=== PATIENT | female | born 1985 | race Caucasian/White ===

== ENCOUNTER 2016-09-08 21:05 | Observation (INO) | payer BC ==
[~2016-09-08] VITALS: Ht 165.1 cm; Wt 83.8 kg
[~2016-09-08 21:05] MED LIST: PRENTAB26 PO
[2016-09-08] MEDS ORDERED: ONDANSETRON INJ 2 MG/ML 2 ML VIAL IV STA (22:05)
[2016-09-08] MEDS ORDERED: MoRPHine SULFATE 4 MG/ML 1 ML CARP\\VIAL IV STA ×2 (22:05→23:46)
[2016-09-08] MEDS ORDERED: SODIUM CHLORIDE 0.9% 1000ML 1,000 ML IV STA ×2 (22:05)
--- NOTE | 2016-09-08 22:17 | DIAGNOSTIC IMAGING REPORT ---
CHEST ONE VIEW PORTABLE CLINICAL HISTORY: Atypical chest pain. Vomiting. COMPARISON STUDY: 01/06/2015 FINDINGS: The cardiac and mediastinal contours are normal. There is no evidence of focal pulmonary consolidation. There is no evidence of failure. No pleural effusions are visualized.[ No free air is visualized IMPRESSION: No active disease in the chest. Electronically signed by: Franki Mcmillan M.D. 09/08/2016 10:15 PM Dictated Date/Time: 09/08/2016 10:15 PM
[2016-09-08 23:09] LABS: BASO % 0.3 %; BASO ABS # 0.02 K/uL (0-0.2); COMPLETE YES; EOS % 0.6 %; HEMATOCRIT 42.6 % (37-47); IG% 0.1 %; LYMPH % 33.9 %; LYMPH ABS # 2.67 K/uL (1.2-3.4); MEAN CELL VOLUME 90.6 fL (80-100); MEAN CORPUSCULAR HEMOGLOBIN 30.2 pg (25-34); MEAN CORPUSCULAR HGB CONC 33.3 g/dl (32-36); MONO % 5.2 %; NEUT % 59.9 %; PLATELET COUNT 222 K/uL (130-400); WHITE BLOOD COUNT 7.88 K/uL (4.8-10.8)
[2016-09-08 23:26] LABS: PREG INTERNAL NEGATIVE QC NEG CLEAR BACKGROUND; PREG INTERNAL POSITIVE QC POS CONTROL LINE
[2016-09-08 23:27] LABS: ALT/SGPT 52 U/L (12-78); BLOOD UREA NITROGEN 15 mg/dl (7-18); BUN/CREATININE RATIO 14.9 (10-20); CALCIUM 9.1 mg/dl (8.5-10.1); CARBON DIOXIDE 24 mmol/L (21-32); CHLORIDE 104 mmol/L (98-107); GLUCOSE 73 mg/dl (70-99); POTASSIUM 3.8 mmol/L (3.5-5.1); SODIUM 139 mmol/L (136-145)
[2016-09-08 23:32] LABS: ALKALINE PHOSPHATASE 93 U/L (45-117); AST/SGOT 34 U/L (15-37)
[2016-09-08] MEDS ORDERED: HYDROmorphone INJ 1 MG/ML SYR IV STA (23:46)
[2016-09-09] VITALS (9 sets, daily range): BP systolic 98–119; BP diastolic 65–84; PULSE 59–91; TEMP 36.7–36.9; O2SAT 97–100; Ht 165.1 cm; Wt 83.8 kg
[2016-09-09 00:33] LABS: URINE APPEARANCE CLEAR (CLEAR); URINE BILIRUBIN NEG (NEG); URINE COLOR YELLOW; URINE NITRITE NEG (NEG); URINE SPECIFIC GRAVITY 1.022 (1.000-1.030); UROBILINOGEN NEG (NEG); ZZUR CULT IF INDIC CLEAN CATCH NO
[2016-09-09 00:34] LABS: MANUAL MICROSCOPIC REQUIRED? NO; REVIEW REQ? NO
[2016-09-09] MEDS ORDERED: OXYCODONE/ACETAMINOPHEN 5-325 TAB PO PRN (01:30)
[2016-09-09] MEDS ORDERED: HYDROmorphone INJ 1 MG/ML SYR IV PRN (01:30)
[2016-09-09] MEDS ORDERED: ONDANSETRON INJ 2 MG/ML 2 ML VIAL IV PRN ×2 (01:30→07:45)
--- NOTE | 2016-09-09 01:33 | History & Physical Bridge Note ---
H&P Re-Evaluation Bridge Note: I have examined the patient, reviewed the History & Physical and in the interval since the performance of the History & Physical I have noted the following changes of clinical significance: No changes notedh and p dictated 1; 30 am ext [id number] stat line 100 confirmation number [id number]. dx acute cholecystitis plan lap mike c.gram
[2016-09-09] MEDS ORDERED: IV FLUIDS COMPLETED PRN (02:00)
--- NOTE | 2016-09-09 02:28 | HISTORY & PHYSICAL EXAMINATION ---
DATE OF ADMISSION: 09/09/2016 Seen in the Emergency Room on 09/09/2016 at 1:15 in the morning. SUMMARY: This is a 31-year-old female, who came into the Emergency Room last evening at approximately 9:15 where vitals showed a temperature of 36.9, pulse 75, respirations 18, blood pressure 127/83 and O2 sats 100% on room air. After she has had at least 24-hour history of abdominal pain, progressively it got worse. When she came into the Emergency Room, she was evaluated, had an ultrasound and a chest x-ray which confirmed what it had shown before that she has cholelithiasis. No real wall thickening. I was called at approximately 12:15 this morning by the physician medical office receptionist assistant where she has had the patient, she could not keep her comfortable. She has had 3 doses of analgesics, 2 of morphine and 1 mg of Dilaudid probably an hour before she had called me, it was my recollection. Apparently, the patient had not been seen by the PA since that time, so I asked her to see the patient again to see if the Dilaudid was sufficient. The physician medical office receptionist assistant called me back later and stated that the patient was comfortable except when you pushed in her right upper quadrant. Other past medical history is positive. She had a delivery back in June, but in last April she had an ultrasound that showed cholelithiasis. The plan according to the patient was to see her buzzle buffer 6 weeks and at that time a referral would be made for surgery. That has passed as far as waiting for 6 weeks yet. Apparently, she had a few office cancellation according to the patient. She previously denied any factors that attributed to a gallbladder problem except that two days ago, when those symptoms started. She states that she ate some subs at [employer] in [place] and with extra spices on it that may have triggered the etiology. PAST MEDICAL HISTORY: Other than the deliveries have been unremarkable. She is a healthy appearing, 31-year-old female, with no really systemic disease. ALLERGIES: No known allergies. MEDICATIONS: She really does not take any medicines. SURGERIES: She has had no previous surgery. PHYSICAL EXAMINATION: VITAL SIGNS: As I see her this morning as stated above at 1:15. Her last vitals were obtained about an hour prior to that where her pulse rate was 98, respirations 18, blood pressure 109/69 and O2 sats 98 on room air. GENERAL: She is lying in bed. Her mother is at bedside. She is resting comfortably, but she said the pain keeps coming back off and on. HEAD: Normocephalic. EYES: PERRLA. The sclerae is nonicteric. NECK: There is no cervical lymphadenopathy. Oropharyngeal area; she has a jewelry on her tongue that I asked that should be removed prior to surgery. LUNGS: Clear to auscultation. HEART: Normal sinus rhythm. ABDOMEN: Completely benign. I cannot elicit any tenderness except possibly some pressure in the right upper quadrant. We have guarding with deep palpation. EXTREMITIES: Grossly normal. LABORATORY DATA: Showed white count at 7.88. There is no left shift. Her hemoglobin is 14.2. The chemistries are; liver function tests were all normal including a negative test. PLAN: At this point, we will admit the patient since it is 1:30 in the morning. I will check with the OR and hopefully we can get it done first thing in the morning. Risks and complications of surgery which for her is laparoscopic cholecystectomy, cholangiogram possible open; were explained to the patient and she would like to proceed accordingly. ELROY
[2016-09-09] MEDS: LACTATED RINGER'S 1000ML 1,000 ML IV SCH ×2 (03:21→10:33)
[2016-09-09] MEDS: CEFOXITIN IV 2,000 MG in DEXTROSE 5% 50ML 50 ML IV SCH ×2 (04:10→10:31)
--- NOTE | 2016-09-09 06:14 | EMERGENCY ROOM VISIT NOTE ---
History First contact with patient: 22:03 Chief Complaint: ABDOMINAL PAIN Stated Complaint: CHOLECYSTITIS Nursing Triage Summary: Patient states "I just had a baby two months ago. I was full of gallstones while . When I have a flare up of pain, the pain radiates across my chest. I feel short of breath but it is because of the pain. I have been vomiting with the pain since about 1700. I have a lot of pain in the center of my chest that is burning in nature." History of Present Illness The patient is a 31 year old female who presents to the Emergency Room with complaints of nausea, epigastric right upper quadrant pain since last night. She describes the pain as severe, 9 out of 10. Nothing makes it better or worse. It started after eating a fatty sandwich last night. Patient states she is best to her gallbladder out with Dr. Mitchell but never had this scheduled. Patient denies fever, chills, cough, congestion, urinary symptoms, dysuria. Review of Systems See HPI for pertinent positives & negatives. A total of 10 systems reviewed and were otherwise negative. Past Medical/Surgical History Medical Problems: (1) 39 weeks (2) Cholecystitis (3) labor Social History Smoking Status: Unknown if Ever Smoked Drug Use: none Housing Status: lives with family Current/Historical Medications No Active Prescriptions or Reported Meds Allergies Coded Allergies: No Known Allergies (Unverified , 09/08/16) Physical Exam Vital Signs Date Time Temp Pulse Resp B/P Pulse Ox O2 Delivery O2 Flow Rate FiO2 09/09/16 00:46 98 18 109/69 98 Room Air 09/08/16 23:12 65 18 118/75 99 Room Air 09/08/16 23:12 99 Room Air 09/08/16 21:15 36.9 75 18 127/83 100 Room Air Pain Rating (0-10): 7.0 Physical Exam VITALS: Vitals are noted on the nurse's note and reviewed by myself. Vital signs stable. GENERAL: Pleasant female in obvious pain, in no acute distress, nondiaphoretic, well-developed well-nourished. SKIN: The skin was without rashes, erythema, edema, or bruising. There is no tenting of the skin. Capillary reflex less than 2 seconds. HEAD: Normocephalic atraumatic. EARS: External auditory canals clear, tympanic membranes pearly zacarias without erythema or effusion bilaterally. EYES: Pupils equal round and reactive to light and accommodation. Conjunctivae without injection, sclerae without icterus. Extraocular movements intact. NOSE: Patent, turbinates without inflammation or discharge. MOUTH: Mucous membranes moist. Pharynx without erythema or exudate. Uvula midline. Airway patent. Tongue does not deviate. NECK: Supple without nuchal rigidity. No lymphadenopathy. No thyromegaly. Cervical spine is nontender. No JVD. HEART: Regular rate and rhythm without murmurs gallops or rubs. LUNGS: Clear to auscultation bilaterally without wheezes, rales or rhonchi. No dullness to percussion. No retractions or accessory muscle use. ABDOMEN: Positive bowel sounds x 4. Normal tympanic percussion. Soft, tender to palpation right upper quadrant, no CVA tenderness, without masses or organomegaly. No guarding or rebound tenderness. MUSCULOSKELETAL: No muscle atrophy, erythema, or edema noted. NEURO: Patient was alert and oriented to person place and time. Normal sensation to light and sharp touch. No focal neurological deficits. Medical Decision & Procedures Laboratory Results 09/08/16 22:25 Red Blood Count 4.70, Mean Corpuscular Volume 90.6, Mean Corpuscular Hemoglobin 30.2, Mean Corpuscular Hemoglobin Concent 33.3, Mean Platelet Volume 11.0, Neutrophils (%) (Auto) 59.9, Lymphocytes (%) (Auto) 33.9, Monocytes (%) (Auto) 5.2, Eosinophils (%) (Auto) 0.6, Basophils (%) (Auto) 0.3, Neutrophils # (Auto) 4.72, Lymphocytes # (Auto) 2.67, Monocytes # (Auto) 0.41, Eosinophils # (Auto) 0.05, Basophils # (Auto) 0.02 09/08/16 22:25 Test 09/08/16 22:25 09/08/16 22:30 White Blood Count 7.88 K/uL (4.8-10.8) Red Blood Count 4.70 M/uL (4.2-5.4) Hemoglobin 14.2 g/dL (12.0-16.0) Hematocrit 42.6 % (37-47) Mean Corpuscular Volume 90.6 fL (80-100) Mean Corpuscular Hemoglobin 30.2 pg (25-34) Mean Corpuscular Hemoglobin Concent 33.3 g/dl (32-36) Platelet Count 222 K/uL (130-400) Mean Platelet Volume 11.0 fL (7.4-10.4) Neutrophils (%) (Auto) 59.9 % Lymphocytes (%) (Auto) 33.9 % Monocytes (%) (Auto) 5.2 % Eosinophils (%) (Auto) 0.6 % Basophils (%) (Auto) 0.3 % Neutrophils # (Auto) 4.72 K/uL (1.4-6.5) Lymphocytes # (Auto) 2.67 K/uL (1.2-3.4) Monocytes # (Auto) 0.41 K/uL (0.11-0.59) Eosinophils # (Auto) 0.05 K/uL (0-0.5) Basophils # (Auto) 0.02 K/uL (0-0.2) RDW Standard Deviation 42.7 fL (36.4-46.3) RDW Coefficient of Variation 12.8 % (11.5-14.5) Immature Granulocyte % (Auto) 0.1 % Immature Granulocyte # (Auto) 0.01 K/uL (0.00-0.02) Anion Gap 11.0 mmol/L (3-11) Est Creatinine Clear Calc Drug Dose 87.9 ml/min Estimated GFR () 87.6 Estimated GFR (Non- 75.5 BUN/Creatinine Ratio 14.9 (10-20) Calcium Level 9.1 mg/dl (8.5-10.1) Total Bilirubin 0.4 mg/dl (0.2-1) Direct Bilirubin 0.1 mg/dl (0-0.2) Aspartate Amino Transf (AST/SGOT) 34 U/L (15-37) Alanine Aminotransferase (ALT/SGPT) 52 U/L (12-78) Alkaline Phosphatase 93 U/L (45-117) Troponin I < 0.015 ng/ml (0-0.045) Total Protein 7.8 gm/dl (6.4-8.2) Albumin 3.8 gm/dl (3.4-5.0) Lipase 220 U/L (73-393) Human Chorionic Gonadotropin, Qual NEG (NEG) Urine Color YELLOW Urine Appearance CLEAR (CLEAR) Urine pH 5.0 (4.5-7.5) Urine Specific [place] 1.022 (1.000-1.030) Urine Protein NEG (NEG) Urine Glucose (UA) NEG (NEG) Urine Ketones NEG (NEG) Urine Occult Blood NEG (NEG) Urine Nitrite NEG (NEG) Urine Bilirubin NEG (NEG) Urine Urobilinogen NEG (NEG) Urine Leukocyte Esterase NEG (NEG) Medications Administered Medications (Trade) Dose Ordered Sig/Nishant Route Start Time Stop Time Status Last Admin Dose Admin Morphine Sulfate (MoRPHine SULFATE INJ) 4 mg NOW STAT IV 09/08/16 22:05 09/08/16 22:06 DC 09/08/16 22:05 4 MG Ondansetron HCl 4 mg 4 mg NOW STAT IV 09/08/16 22:05 09/08/16 22:06 DC 09/08/16 22:05 4 MG Sodium Chloride 1,000 ml @ 999 mls/hr Q1H1M STAT IV 09/08/16 22:05 09/08/16 23:05 DC 09/08/16 23:01 999 MLS/HR Sodium Chloride (Nss 1000ml) 1,000 ml @ 125 mls/hr Q8H STAT IV 09/08/16 22:05 09/09/16 03:07 DC 09/08/16 23:01 125 MLS/HR Morphine Sulfate (MoRPHine SULFATE INJ) 4 mg NOW STAT IV 09/08/16 23:46 09/08/16 23:47 DC 09/08/16 23:46 4 MG ED Course Prior records/ancillary studies reviewed. Triage Nursing notes reviewed. Additional history obtained from family The patient's history was concerning for abdominal pain. Differential diagnosis: Etiologies such as appendicitis, diverticulitis, PUD, biliary pathology, UTI, pancreatitis, obstruction, mesenteric ischemia, aortic pathology, infections, inflammatory bowel disease, renal colic, as well as others were entertained. Physical examination findings: As above. ER treatment provided: Zofran, morphine, Dilaudid, IV fluids On reassessment the patient felt better. Diagnostics interpreted by me: ECG: Normal sinus, normal intervals, no acute ST-T wave changes. Impression normal sinus rhythm interpreted by myself The labs revealed no worrisome leukocytosis or electrolyte abnormality negative hCG Imaging studies: Ultrasound shows cholelithiasis with a stone in the neck. Positive Clark sign. Consultation: A consultation was placed with the surgeon, Dr. Munoz the case was discussed and diagnostics were reviewed. The patient was evaluated in the ER for further treatment. Exam and history seem consistent with biliary colic concerning for acute cholecystitis. Patient will be evaluated by surgery for possible admission. Patient had severe amount of pain. She is given multiple rounds of pain meds. No white count. No elevation in LFTs.By the evaluation outlined above emergent etiologies such as appendicitis, diverticulitis, PUD, UTI, pancreatitis, obstruction, mesenteric ischemia, aortic pathology, infections, inflammatory bowel disease, renal colic, as well as others were deemed relatively unlikely. The pt informed about the findings as listed above. All questions were answered and pleased with the treatment. Case reviewed with my attending Medical Decision As above Impression Primary Impression: Biliary colic Departure Information Dispostion Still a Patient Condition GOOD Prescriptions No Active Prescriptions or Reported Meds Referrals Rex Trent M.D. (PCP) Forms Call Back Authorization, HOME CARE DOCUMENTATION FORM, IMPORTANT VISIT INFORMATION Patient Instructions My [facility]
[2016-09-09] MEDS ORDERED: DEXAMETHASONE SOD INJ 4 MG/ML VIAL ONE (06:40)
[2016-09-09] MEDS ORDERED: LIDOCAINE HCL 2% 2 ML VIAL (20MG/ML) ONE (06:40)
[2016-09-09] MEDS ORDERED: FENTANYL CITRATE INJ 50 MCG/1 ML 2 ML VIAL ONE ×3 (06:40→08:02)
[2016-09-09] MEDS ORDERED: SUCCINYLCHOLINE CHLORIDE 20 MG/ML 10 ML VIAL IV ONE (06:40)
[2016-09-09] MEDS ORDERED: ONDANSETRON INJ 2 MG/ML 2 ML VIAL ONE (06:40)
[2016-09-09] MEDS ORDERED: GLYCOPYRROLATE INJ 0.2 MG/ML VIAL ONE (06:40)
[2016-09-09] MEDS ORDERED: PROPOFOL IV EMULSION 10 MG/ML 20 ML VIAL IV ONE (06:40)
[2016-09-09] MEDS ORDERED: ROCURONIUM BROMIDE 10 MG/ML 5 ML VIAL ONE (06:40)
[2016-09-09] MEDS ORDERED: PHENYLEPHRINE HCL INJ 10 MG/ML VIAL ONE (06:40)
[2016-09-09] MEDS ORDERED: NEOSTIGMINE METHYLSULFATE 5 MG/5 ML SYR ONE (06:40)
[2016-09-09] MEDS ORDERED: MIDAZOLAM HCL 1 MG/ML 2ML VIAL ONE (06:40)
[2016-09-09] MEDS ORDERED: EpHEDrine SULFATE INJ 50 MG/ML AMP ONE (06:40)
[2016-09-09] MEDS ORDERED: ACETAMINOPHEN 1000 MG/100 ML IV IV ONE (06:48)
--- NOTE | 2016-09-09 07:09 | DIAGNOSTIC IMAGING REPORT ---
ABDOMINAL ULTRASOUND, RIGHT UPPER QUADRANT HISTORY: Right upper quadrant abdominal pain.. COMPARISON: Abdominal ultrasound 05/05/2016. FINDINGS: Pancreas: The pancreas demonstrates a normal echotexture. Liver: Unremarkable. Gallbladder: Multiple small gallstones. There appears to be a gallstone at the neck of the gallbladder. No gallbladder wall thickening or pericholecystic fluid. The technologist reported a positive sonographic Clark sign. CBD: 6 mm. Right kidney: No hydronephrosis. IMPRESSION: Cholelithiasis with a small stone at the neck of the gallbladder. However, no gallbladder wall thickening at this time. The technologist reported a positive sonographic Clark's sign. Clinical correlation recommended to assess for acute cholecystitis. Consider nuclear medicine hepatobiliary scan. Electronically signed by: Igor Weaver M.D. 09/09/2016 7:08 AM Dictated Date/Time: 09/09/2016 7:06 AM
[2016-09-09] MEDS ORDERED: LIDOCAINE/EPINEPHRINE 1% 20 ML VIAL ONE (07:11)
[2016-09-09] MEDS ORDERED: ATROPINE SULFATE 0.1 MG/ML 5ML SYR IV PRN (07:45)
[2016-09-09] MEDS ORDERED: HYDROmorphone INJ 2 MG/ML SYR/VIAL IV PRN (07:45)
[2016-09-09] MEDS ORDERED: PROMETHAZINE HCL INJ 12.5 MG in SODIUM CHLORIDE 0.9% 50ML 50 ML IV PRN (07:45)
[2016-09-09] MEDS ORDERED: KETOROLAC TROMETHAMINE 30 MG/ML VIAL IV. PRN (07:45)
[2016-09-09] MEDS ORDERED: CONRAY 60% 50 ML VIAL INSTIL ONE (08:14)
--- NOTE | 2016-09-09 08:38 | [facility] Post Operative Brief Note ---
Immediate Operative Summary Operative Date Sep 09, 2016. Pre-Operative Diagnosis Acute cholecystitis and cholelithiasis Post-Operative Diagnosis Same as preoperative diagnosis Procedure(s) Performed Laparoscopic cholecystectomy with intraoperative cholangiogram Surgeon Dr. Munoz Advertising Space Clerk Surgeon(s) None Estimated Blood Loss 10 ml Findings hydrops gallbladder Specimens A. Gallbladder
[2016-09-09] MEDS ORDERED: OXYC-57 PO (08:41)
--- NOTE | 2016-09-09 08:44 | Discharge Instructions ---
Discharge Instructions Visit Reason for Visit: Cholecystitis Discharge Discharge Diagnosis / Problem: s/p lap mike,c,gram Discharge Goals Goal(s): Decrease discomfort Activity Recommendations Lifting Limitations: no more than 10 pounds (for one week) Exercise/Sports Limitations: as tolerated May Resume Sexual Activity: when tolerated Shower/Bathe: tomorrow Driving or Machine Use: resume 3 days after discharge (do not take prescription meds when driving) Anesthesia . Post Anesthesia Instructions: If you have had General Anesthesia or IV Sedation: * Do not drive today. * Resume driving when surgeon permits. * Do not make important decisions or sign legal documents today. * Call surgeon for: 1. Temperature elevations greater than 101 degrees F. 2. Uncontrollable pain. 3. Excessive bleeding. 4. Persistent nausea and vomiting. 5. Medication intolerance (nausea, vomiting or rash). * For nausea and vomiting use only clear liquids such as: tea, soda, bouillon until nausea subsides, then gradually increase diet as tolerated. * If you have any concerns or questions, call your surgeon's office. If physician is unavailable and it is an emergency, call 911 or go to the nearest emergency room. . Instructions / Follow-Up Instructions / Follow-Up call [phone] for any problems and follow up with Dr Munoz in office in 1 week at [address] [place] [address] Dr AMARAL general surgery Diet Recommendations Recommended Home Diet: resume previous diet Procedures Procedures Performed: Laparoscopic cholecystectomy with intraoperative cholangiogram Medical Emergencies . Who to Call and When: Medical Emergencies: If at any time you feel your situation is an emergency, please call 911 immediately. . Non-Emergent Contact . . "Provider Documentation" section prepared by Regis Munoz.
--- NOTE | 2016-09-09 08:49 | DIAGNOSTIC IMAGING REPORT ---
INTRAOPERATIVE CHOLANGIOGRAM HISTORY: Post cholecystectomy. FLUOROSCOPY TIME: 3 seconds. 4 fluoroscopic spot images. FINDINGS: Fluoroscopy was provided for an intraoperative cholangiogram status post cholecystectomy. Contrast was injected through the cystic duct remnant. The common bile duct is normal in course and caliber. There are no filling defects seen within the common bile duct to suggest a retained stone. Contrast extends into the small bowel. There is no intrahepatic bile duct dilatation. IMPRESSION: Fluoroscopy provided for an intraoperative cholangiogram status post cholecystectomy. No filling defects within the common bile duct. Electronically signed by: Igor Weaver M.D. 09/09/2016 8:48 AM Dictated Date/Time: 09/09/2016 8:47 AM
[2016-09-09] MEDS ORDERED: LABETALOL HCL IV 5 MG/ML 20ML ONE (09:02)
--- NOTE | 2016-09-09 09:22 | OPERATIVE REPORT ---
DATE OF OPERATION: 09/09/2016 PREOPERATIVE DIAGNOSIS: Acute and chronic cholecystitis, cholelithiasis. POSTOPERATIVE DIAGNOSIS: Hydrops of the gallbladder. PROCEDURE: Laparoscopic cholecystectomy, intraoperative cholangiogram. SURGEON: Dr. Munoz. OPERATION AND FINDINGS: SUMMARY: After induction of general endotracheal anesthesia the patient's abdomen was prepped with Betadine solution and properly draped. We made a small incision supraumbilically enough to place a Veress needle followed by CO2 followed by 5 mm trocar. Point of entry inspected and no injury identified. Under direct visualization, we placed the patient in reverse Trendelenburg position, rotated to the left. We could see a distended gallbladder, probably hydrops just by the appearance of it. Under direct visualization, we placed a 5 mm epigastric, two 5 mm subcostal ports with preemptive local analgesia 1% Xylocaine. The gallbladder was elevated and we aspirated with the aspirating needle, certainly got clear bile indicating as we had predicted. The wall was very thickened but acutely, therefore it was placed under elevated right lobe of the liver with the upper transfer. We then went to the murali hepatis, which was moderate amount of edema as expected. We just dissected out along the cystic duct and creating the triangle of Calot area and then we got around the cystic duct sufficiently that we clipped it proximally. A small opening in the cystic duct was made. A #4 ureteral catheter transversed the abdominal wall positioned Angiocath in the cystic duct. Serial x-rays were taken that showed free flow into the duodenum. No obstruction. The cholangiocath was then removed. The cystic duct was doubly clipped and divided. An artery which was small was divided after clipping it twice, then we took the gallbladder pretty much just by blunt dissection. A few areas we cauterized as well, as stated was quite edematous and we left it dissected by leaving the posterior peritoneum pretty much intact. A few areas we had some bleeding coming through the liver bed, but we cauterized that. Once the gallbladder was elevated off the liver bed, we suctioned out the subhepatic area appeared satisfactory except for a few minor oozers that we will control with the end. The gallbladder was placed in an Endopouch and taken out intact through the epigastric port. Subhepatic and suprahepatic area was then checked again we spent some time cauterizing a few bleeders in the liver area, which were small. By the time we were done, the seemed adequate and satisfactory. We suctioned out above the right lobe of the liver, placed the camera in the right subcostal port to visualize the umbilical area where we first went in, no adhesions in the anterior abdominal wall was noted. The wounds were closed with 4-0 Monocryl. Steri-Strips applied. The procedure was tolerated well by the patient and was taken to recovery room in good condition. Estimated blood loss approximately 10 mL. I attest to the content of the Intraoperative Record and any orders documented therein. Any exceptio ns are noted below.
--- NOTE | 2016-09-09 09:45 | Anesthesiology Progress Note ---
Anesthesia Post Op Note Date & Time Sep 09, 2016 at 09:45 Vital Signs Pain Intensity: 2 Vital Signs Past 12 Hours Date Time Temp Pulse Resp B/P Pulse Ox O2 Delivery O2 Flow Rate FiO2 09/09/16 09:39 121/84 09/09/16 09:38 56 16 09/09/16 09:38 57 16 100 09/09/16 09:34 109/77 09/09/16 09:33 57 15 100 09/09/16 09:33 56 15 09/09/16 09:29 115/76 09/09/16 09:28 57 18 100 09/09/16 09:28 57 18 09/09/16 09:27 36.6 09/09/16 09:25 53 16 100 09/09/16 09:25 53 16 09/09/16 09:24 118/77 09/09/16 09:20 56 16 09/09/16 09:20 57 16 100 09/09/16 09:19 108/78 09/09/16 09:15 58 13 09/09/16 09:15 59 13 100 09/09/16 09:14 124/89 09/09/16 09:10 56 23 09/09/16 09:10 56 23 100 09/09/16 09:09 123/83 09/09/16 09:05 52 12 100 09/09/16 09:05 52 12 09/09/16 09:04 126/86 09/09/16 09:00 66 17 09/09/16 09:00 65 17 100 09/09/16 08:58 123/88 09/09/16 08:55 36.3 65 16 123/88 100 Nasal Cannula 3 09/09/16 06:32 36.9 87 16 115/77 99 Room Air 09/09/16 02:30 Room Air 09/09/16 02:30 36.7 91 14 116/83 100 Room Air 09/09/16 02:20 95 18 101/73 100 09/09/16 00:46 98 18 109/69 98 Room Air 09/08/16 23:12 65 18 118/75 99 Room Air 09/08/16 23:12 99 Room Air Notes Mental Status: alert / awake / arousable, participated in evaluation Pt Amnestic to Procedure: Yes Nausea / Vomiting: adequately controlled Pain: adequately controlled Airway Patency, RR, SpO2: stable & adequate BP & HR: stable & adequate Hydration State: stable & adequate Anesthetic Complications: no major complications apparent
--- NOTE | 2016-09-14 11:13 | DISCHARGE SUMMARY ---
PRIMARY DISCHARGE DIAGNOSES: Cholelithiasis and acute cholecystitis. PROCEDURE PERFORMED: Laparoscopic cholecystectomy with intraoperative cholangiogram. HOSPITAL COURSE: The patient is a 31-year-old female who presented to the Emergency Department with severe epigastric and right upper quadrant pain. She had a normal white count, but a stone was noted in the neck of the gallbladder. Pain was not managed with oral analgesics in the Emergency Department. She was subsequently admitted to the surgical service overnight. She was taken to the operating room the next morning for laparoscopic cholecystectomy. She did have hydrops. Cholangiogram was negative. The procedure was well tolerated. She was returned to the surgical floor. During the day, she was able to increase activity, tolerating a regular diet. Once she was tolerating oral analgesics, she was stable for discharge later in the afternoon. DISCHARGE INSTRUCTIONS: Discharge home. Follow up with Dr. Munoz in 1 week. DISCHARGE MEDICATIONS: Percocet 1-2 tablets every 4 hours as needed.
== END 2016-09-09 14:44 | disposition home or self-care (01) ==
LOC: ENRESERVDT → ENRESERVTM → C.EDB 21:07 → C.MSW 09-09 01:25
PROVIDERS: ADMIT Surgery; ATTEND Surgery
DX: K80.10 Calculus of gallbladder with chronic cholecystitis without obstruction (principal); K82.1 Hydrops of gallbladder

== ENCOUNTER 2017-05-03 07:51 | Emergency (ER) | payer BC ==
[~2017-05-03] VITALS: Ht 165.1 cm; Wt 89.3 kg
[~2017-05-03 07:51] MED LIST changes: +OXYC-57 PO; -PRENTAB26 PO
[2017-05-03 07:54] VITALS: Ht 165.1 cm; Wt 89.3 kg
[2017-05-03] MEDS ORDERED: SUCRALFATE 1 GM TAB PO STA (08:07)
[2017-05-03] MEDS ORDERED: GI COCKTAIL PO STA (08:07)
[2017-05-03] MEDS ORDERED: DiphenhydrAMINE HCL 50 MG/ML VIAL IV STA (08:07)
[2017-05-03] MEDS ORDERED: PROCHLORPERAZINE 5 MG/ML 2 ML VIAL IV STA (08:07)
[2017-05-03] MEDS ORDERED: SODIUM CHLORIDE 0.9% 1000ML 1,000 ML IV STA (08:07)
[2017-05-03] MEDS ORDERED: FAMOTIDINE 20 MG TAB PO STA (08:07)
[2017-05-03] MEDS ORDERED: KETOROLAC TROMETHAMINE 30 MG/ML VIAL IV STA (08:07)
--- NOTE | 2017-05-03 08:08 | EMERGENCY ROOM VISIT NOTE ---
History Report prepared by Marry: Lindsey Keane Under the Supervision of: Dr. Jc Delgado M.D. First contact with patient: 07:59 Chief Complaint: SORETHROAT Stated Complaint: SORETHROAT SOB History of Present Illness The patient is a 31 year old female who presents to the Emergency Room with complaints of a persistent sore throat for the past four weeks. She currently rates her discomfort as a 10/10 in severity. The patient states that for the past four weeks she has had a sore throat and sinus congestion. She states that she has had difficulty eating and swallowing. The patient states that recently she has been experiencing chills. She states that she has taken ibuprofen which has helped to alleviate her headache. The patient states that she cannot take cold medications because they make her too drowsy and would cause her to sleep. She additionally reports lymphadenopathy. Source of History: patient Position: throat Symptom Intensity: 10/10 Quality: other (sore) Timing: other (persistent) Associated Symptoms: + chills, + headache Note: Assoicated Symptoms: difficulty eating and swallowing, sinus congestion Review of Systems See HPI for pertinent positives & negatives. A total of 10 systems reviewed and were otherwise negative. Past Medical & Surgical Medical Problems: (1) 39 weeks (2) Cholecystitis (3) labor Family History Cancer Diabetes mellitus Hypertension Kidney disease Kidney stones Lung disease Social History Smoking Status: Never Smoker Smokeless Tobacco Use: No Alcohol Use: none Drug Use: none Marital Status: Housing Status: lives with family Occupation Status: employed Current/Historical Medications Scheduled Amoxicillin (Amoxil), 1 TAB PO TID Ondasetron Odt (Zofran Odt), 4 MG SL Q6H Allergies Coded Allergies: No Known Allergies (Unverified , 05/03/17) Physical Exam Vital Signs Date Time Temp Pulse Resp B/P (MAP) Pulse Ox O2 Delivery O2 Flow Rate FiO2 05/03/17 09:55 117 16 05/03/17 09:24 117 18 05/03/17 08:36 123 05/03/17 08:16 98 Room Air 05/03/17 07:54 36.9 132 18 145/84 98 Room Air Physical Exam GENERAL: Patient is a healthy-appearing well-nourished female HEAD: Normocephalic atraumatic EYES: Ocular movements intact pupils equal and react to light OROPHARYNX mucous membranes are moist no exudates present no erythema or edema present NECK: Supple no nuchal rigidity, no evidence of meningitis or encephalitis on exam, able to swallow own saliva. CHEST: Good equal expansion LUNGS: Clear and equal to auscultation CARDIAC: Normal S1 and S2 ABDOMEN: Soft nontender no guarding BACK: No CVA tenderness EXTREMITIES: No pain upon palpation normal muscle strength in all groups no clubbing cyanosis or edema NEURO: Patient is following commands and answering questions appropriately. Alert and oriented x3 Cranial Nerves 2-12 grossly intact Medical Decision & Procedures ER Provider Diagnostic Interpretation: X-ray results as stated below per interpretation by me and the radiologist: SOFT TISSUE NECK HISTORY: 31 years-old Female Pt c/o unable to swallow acute sore throat with shortness of breath COMPARISON: Chest radiograph 05/03/2017 TECHNIQUE: 2 views of the soft tissues of the neck FINDINGS: No prevertebral soft tissue swelling. The epiglottis and aryepiglottic folds are unremarkable. There is no opaque foreign body. There is straightening of the normal cervical lordosis. No acute bony abnormality or significant degenerative changes identified. Imaged lung apices are clear. IMPRESSION: No acute process. The above report was generated using voice recognition software. It may contain grammatical, syntax or spelling errors. Electronically signed by: Marin Obregon M.D. 05/03/2017 9:40 AM Dictated Date/Time: 05/03/2017 9:38 AM FRONTAL CHEST RADIOGRAPH CLINICAL HISTORY: Shortness of breath. COMPARISON STUDY: Chest radiograph September 08, 2016. FINDINGS: Lung volumes are normal. No pneumothorax or pleural effusion is present. Pulmonary vascularity is normal. Cardiac size is normal. Mediastinal contours are normal. There is no consolidation. IMPRESSION: No acute cardiopulmonary findings. Electronically signed by: Tai Lai M.D. 05/03/2017 9:40 AM Dictated Date/Time: 05/03/2017 9:40 AM Laboratory Results 05/03/17 09:18 Red Blood Count 4.58, Mean Corpuscular Volume 88.6, Mean Corpuscular Hemoglobin 30.1, Mean Corpuscular Hemoglobin Concent 34.0, Mean Platelet Volume 10.2, Neutrophils (%) (Auto) 86.5, Lymphocytes (%) (Auto) 7.5, Monocytes (%) (Auto) 5.5, Eosinophils (%) (Auto) 0.0, Basophils (%) (Auto) 0.1, Neutrophils # (Auto) 15.50, Lymphocytes # (Auto) 1.35, Monocytes # (Auto) 0.99, Eosinophils # (Auto) 0.00, Basophils # (Auto) 0.01 05/03/17 09:18 Test 05/03/17 08:25 05/03/17 08:30 05/03/17 09:11 05/03/17 09:18 Urine Color YELLOW Urine Appearance CLEAR (CLEAR) Urine pH 5.0 (4.5-7.5) Urine Specific [place] 1.020 (1.000-1.030) Urine Protein NEG (NEG) Urine Glucose (UA) NEG (NEG) Urine Ketones NEG (NEG) Urine Occult Blood NEG (NEG) Urine Nitrite NEG (NEG) Urine Bilirubin NEG (NEG) Urine Urobilinogen NEG (NEG) Urine Leukocyte Esterase NEG (NEG) Influenza Type A Antigen Neg for Influ A (NEG) Influenza Type B Antigen Neg for Influ B (NEG) Urine Test NEG (NEG) White Blood Count 17.92 K/uL (4.8-10.8) Red Blood Count 4.58 M/uL (4.2-5.4) Hemoglobin 13.8 g/dL (12.0-16.0) Hematocrit 40.6 % (37-47) Mean Corpuscular Volume 88.6 fL (80-100) Mean Corpuscular Hemoglobin 30.1 pg (25-34) Mean Corpuscular Hemoglobin Concent 34.0 g/dl (32-36) Platelet Count 239 K/uL (130-400) Mean Platelet Volume 10.2 fL (7.4-10.4) Neutrophils (%) (Auto) 86.5 % Lymphocytes (%) (Auto) 7.5 % Monocytes (%) (Auto) 5.5 % Eosinophils (%) (Auto) 0.0 % Basophils (%) (Auto) 0.1 % Neutrophils # (Auto) 15.50 K/uL (1.4-6.5) Lymphocytes # (Auto) 1.35 K/uL (1.2-3.4) Monocytes # (Auto) 0.99 K/uL (0.11-0.59) Eosinophils # (Auto) 0.00 K/uL (0-0.5) Basophils # (Auto) 0.01 K/uL (0-0.2) RDW Standard Deviation 39.1 fL (36.4-46.3) RDW Coefficient of Variation 12.2 % (11.5-14.5) Immature Granulocyte % (Auto) 0.4 % Immature Granulocyte # (Auto) 0.07 K/uL (0.00-0.02) Anion Gap 7.0 mmol/L (3-11) Est Creatinine Clear Calc Drug Dose 92.7 ml/min Estimated GFR () 89.7 Estimated GFR (Non- 77.4 BUN/Creatinine Ratio 8.3 (10-20) Calcium Level 8.5 mg/dl (8.5-10.1) Total Bilirubin 0.5 mg/dl (0.2-1) Direct Bilirubin < 0.1 mg/dl (0-0.2) Aspartate Amino Transf (AST/SGOT) 15 U/L (15-37) Alanine Aminotransferase (ALT/SGPT) 27 U/L (12-78) Alkaline Phosphatase 82 U/L (45-117) Total Protein 7.9 gm/dl (6.4-8.2) Albumin 3.5 gm/dl (3.4-5.0) Monoscreen NEG (NEG) Labs reviewed by ED physician. Medications Administered Medications (Trade) Dose Ordered Sig/Nishant Route Start Time Stop Time Status Last Admin Dose Admin Dexamethasone Sodium Phosphate (Decadron Inj) 10 mg NOW ONCE IV 05/03/17 08:15 05/03/17 08:16 DC 05/03/17 09:18 10 MG Ketorolac Tromethamine (Toradol Inj) 30 mg NOW STAT IV 05/03/17 08:07 05/03/17 08:10 DC 05/03/17 09:17 30 MG Sodium Chloride 1,000 ml @ 999 mls/hr Q1H1M STAT IV 05/03/17 08:07 05/03/17 09:07 DC 05/03/17 09:18 999 MLS/HR Prochlorperazine Edisylate (Compazine Inj) 5 mg NOW STAT IV 05/03/17 08:07 05/03/17 08:10 DC 05/03/17 09:18 5 MG Diphenhydramine HCl (Benadryl Inj) 50 mg NOW STAT IV 05/03/17 08:07 05/03/17 08:10 DC 05/03/17 09:18 50 MG Famotidine (Pepcid Tab) 20 mg NOW STAT PO 05/03/17 08:07 05/03/17 08:10 DC 05/03/17 08:52 20 MG Sucralfate (Carafate Tab) 1 gm NOW STAT PO 05/03/17 08:07 05/03/17 08:10 DC 05/03/17 09:18 1 GM Al Hydroxide/Mg Hydroxide (Maalox Susp) 30 ml STK-MED ONCE .ROUTE 05/03/17 08:19 05/03/17 08:20 DC 05/03/17 08:52 30 ML Lidocaine HCl (Viscous Lidocaine 2% Soln) 20 ml STK-MED ONCE .ROUTE 05/03/17 08:19 05/03/17 08:20 DC 05/03/17 08:52 10 ML ED Course 0801: Past medical records reviewed. The patient was evaluated in room A2. A complete history and physical examination was performed. 0807: Ordered Sucralfate 1 gm PO, Pepcid Tab 20 mg PO, GI Cocktail 24 ml PO, Benadryl Inj 50 mg IV, Compazine Inj 5 mg IV, Sodium Chloride 1000 ml @ 999 mls/ hr IV, Toradol Inj 30 mg IV. 0815: Ordered Decadron Inj 10 mg IV. 1007: Ordered Rocephin Inj 1 gm IV. 1023: I reevaluated the patient and she is feeling much better. I discussed the exam findings with her and I discussed the treatment plan. She verbalized complete understanding and agreement. She is ready to go home. Medical Decision Differential diagnosis: Etiologies such as viral syndrome, otitis, pharyngitis, pneumonia, influenza, meningitis, urinary tract infection, sepsis, bacteremia, as well as others were entertained. This is a 31-year-old female who presents emergency department complaining of severe sore throat. I will note that the patient has no evidence of meningitis encephalitis on examination and in addition she is able swallow her own saliva. The patient is drinking rosanne tab in the emergency department. She does have an elevation in her white blood count cell count however this may be due to the patient vomiting this morning. The patient was given a migraine cocktail including Decadron and Toradol Benadryl and Compazine. Repeat examination revealed improvement patient's symptoms. Her strep is negative however I will prophylactically treat her with Rocephin and placed the patient on amoxicillin. The patient was also given a prescription for Zofran. I recommended the patient follow-up with your nose of throat or return to the emergency department if she is unable to keep anything down. Patient was in agreement with the treatment plan. Medication Reconcilliation Current Medication List: was personally reviewed by me Impression Primary Impression: Pharyngitis Scribe Attestation The scribe's documentation has been prepared under my direction and personally reviewed by me in its entirety. I confirm that the note above accurately reflects all work, treatment, procedures, and medical decision making performed by me. Departure Information Dispostion Home / Self-Care Prescriptions Ondasetron Odt (ZOFRAN ODT) 4 Mg Tab 4 MG SL Q6H for Nausea, #6 TAB Prov: Jc Delgado MD 05/03/17 Amoxicillin (AMOXIL) 500 Mg Tab 1 TAB PO TID for 10 Days, #30 TAB Prov: Jc Delgado MD 05/03/17 Referrals Rex Trent M.D. Forms HOME CARE DOCUMENTATION FORM, IMPORTANT VISIT INFORMATION, School Instructions, Work Instructions Patient Instructions ED Pharyngitis Viral Report Pending, My [facility] Additional Instructions You received narcotic or benzodiazepene medication while in the emergency room today. This is an addictive medication that may cause drowziness as well as constipation. Do not drive, operate heavy machinery, or drink alcohol under the influence of this medication. Take 600 mg Ibuprofen every 6 hours Take 1000 mg Tylenol every 6 hours Culture results are usually available in approx 48 hours You have been examined and treated today on an emergency basis only. This is not a substitute for, or an effort to provide, complete comprehensive medical care. It is impossible to recognize and treat all injuries or illnesses in a single emergency department visit. It is therefore important that you follow up closely with Dr Alvarez. Call as soon as possible for an appointment. Thank you for your time and consideration. I look forward to speaking with you again soon. Please don't hesitate to call us if you have any questions. Problem Qualifiers Primary Impression: Pharyngitis Pharyngitis/tonsillitis etiology: unspecified etiology Qualified Codes: J02.9 - Acute pharyngitis, unspecified
[2017-05-03] MEDS ORDERED: DEXAMETHASONE SOD INJ 10 MG/ML VIAL IV ONE (08:15)
[2017-05-03 08:16] VITALS: O2SAT 98
[2017-05-03] MEDS ORDERED: ALUMINUM/MAGNESIUM SUSP 30 ML UDC ONE (08:19)
[2017-05-03] MEDS ORDERED: LIDOCAINE HCL 2% VISC SOLN 20 ML UDC ONE (08:19)
[2017-05-03 09:04] LABS: MANUAL MICROSCOPIC REQUIRED? NO; REVIEW REQ? NO; URINE APPEARANCE CLEAR (CLEAR); URINE BILIRUBIN NEG (NEG); URINE COLOR YELLOW; URINE NITRITE NEG (NEG); UROBILINOGEN NEG (NEG)
[2017-05-03 09:20] LABS: PREG INTERNAL NEGATIVE QC NEG CLEAR BACKGROUND; PREG INTERNAL POSITIVE QC POS CONTROL LINE
--- NOTE | 2017-05-03 09:41 | DIAGNOSTIC IMAGING REPORT ---
SOFT TISSUE NECK HISTORY: 31 years-old Female Pt c/o unable to swallow acute sore throat with shortness of breath COMPARISON: Chest radiograph 05/03/2017 TECHNIQUE: 2 views of the soft tissues of the neck FINDINGS: No prevertebral soft tissue swelling. The epiglottis and aryepiglottic folds are unremarkable. There is no opaque foreign body. There is straightening of the normal cervical lordosis. No acute bony abnormality or significant degenerative changes identified. Imaged lung apices are clear. IMPRESSION: No acute process. The above report was generated using voice recognition software. It may contain grammatical, syntax or spelling errors. Electronically signed by: Marin Obregon M.D. 05/03/2017 9:40 AM Dictated Date/Time: 05/03/2017 9:38 AM
[2017-05-03 09:42] LABS: BASO % 0.1 %; BASO ABS # 0.01 K/uL (0-0.2); COMPLETE YES; HEMATOCRIT 40.6 % (37-47); IG% 0.4 %; LYMPH % 7.5 %; LYMPH ABS # 1.35 K/uL (1.2-3.4); MEAN CELL VOLUME 88.6 fL (80-100); MEAN CORPUSCULAR HEMOGLOBIN 30.1 pg (25-34); MEAN PLATELET VOLUME 10.2 fL (7.4-10.4); MONO % 5.5 %; NEUT % 86.5 %; PLATELET COUNT 239 K/uL (130-400); RED BLOOD COUNT 4.58 M/uL (4.2-5.4); WHITE BLOOD COUNT 17.92 K/uL (4.8-10.8)
--- NOTE | 2017-05-03 09:42 | DIAGNOSTIC IMAGING REPORT ---
FRONTAL CHEST RADIOGRAPH CLINICAL HISTORY: Shortness of breath. COMPARISON STUDY: Chest radiograph September 08, 2016. FINDINGS: Lung volumes are normal. No pneumothorax or pleural effusion is present. Pulmonary vascularity is normal. Cardiac size is normal. Mediastinal contours are normal. There is no consolidation. IMPRESSION: No acute cardiopulmonary findings. Electronically signed by: Tai Lai M.D. 05/03/2017 9:40 AM Dictated Date/Time: 05/03/2017 9:40 AM
[2017-05-03 10:03] LABS: ALT/SGPT 27 U/L (12-78); AST/SGOT 15 U/L (15-37); BLOOD UREA NITROGEN 8 mg/dl (7-18); BUN/CREATININE RATIO 8.3 (10-20); CALCIUM 8.5 mg/dl (8.5-10.1); CARBON DIOXIDE 23 mmol/L (21-32); CHLORIDE 110 mmol/L (98-107); CREATININE 0.98 mg/dl (0.60-1.20); GLUCOSE 106 mg/dl (70-99); POTASSIUM 3.4 mmol/L (3.5-5.1); SODIUM 140 mmol/L (136-145)
[2017-05-03 10:05] LABS: ALKALINE PHOSPHATASE 82 U/L (45-117)
[2017-05-03] MEDS ORDERED: CEFTRIAXONE SOD INJ 1 GM ADDVIAL IV STA (10:07)
[2017-05-03] MEDS ORDERED: ONDA4TAB10 SL (10:25)
[2017-05-03] MEDS ORDERED: AMOX500T3 PO (10:25)
[2017-05-03 10:42] LABS: INFLUENZA A PCR Neg for Influ A (NEG); INFLUENZA B PCR Neg for Influ B (NEG)
[2017-05-03 11:58] VITALS: BP 145/84; PULSE 100; TEMP 36.9; O2SAT 98
== END 2017-05-03 11:58 | disposition home or self-care (01) ==
LOC: C.EDB 07:52 → C.EDA 11:58
DX: J02.9 Acute pharyngitis, unspecified (principal); Z80.9 Family history of malignant neoplasm, unspecified; Z83.3 Family history of diabetes mellitus; Z82.49 Family history of ischemic heart disease and other diseases of the circulatory system; Z84.1 Family history of disorders of kidney and ureter

== ENCOUNTER → 2017-08-07 | Outpatient (CLI) | payer BC, OTHER ==
[~2017-08-07] MED LIST changes: +AMOX500T3 PO; +ONDA4TAB10 SL; -OXYC-57 PO
== END | disposition home or self-care (01) ==
LOC: C.PAPS 12:05
PROVIDERS: ATTEND Obstetrics & Gynecology
DX: Z01.419 Encounter for gynecological examination (general) (routine) without abnormal findings (principal)

== ENCOUNTER → 2017-08-07 | Outpatient (CLI) | payer BC, OTHER ==
[2017-08-07 10:46] LABS: HEMATOCRIT 41.2 % (37-47); HEMOGLOBIN 13.7 g/dL (12.0-16.0); MEAN CELL VOLUME 90.2 fL (80-100); MEAN CORPUSCULAR HGB CONC 33.3 g/dl (32-36); MEAN PLATELET VOLUME 10.3 fL (7.4-10.4); PLATELET COUNT 231 K/uL (130-400); RED CELL DISTRIBUTION WIDTH CV 12.8 % (11.5-14.5); RED CELL DISTRIBUTION WIDTH SD 42.1 fL (36.4-46.3)
== END | disposition home or self-care (01) ==
LOC: C.LAB1850 10:00
PROVIDERS: ATTEND Obstetrics & Gynecology
DX: N92.0 Excessive and frequent menstruation with regular cycle (principal)